=== PATIENT | female | born 1940 | race Caucasian/White ===

== ENCOUNTER → 2024-03-29 10:13 | Outpatient (REF) | payer BC, SELFPAY | LOC: HWRAD 10:13 | PROVIDERS: ATTENDING PHYSICIAN Internal Medicine | DX: R10.9 Unspecified abdominal pain (principal) | CPT/HCPCS: 76700 ==

== ENCOUNTER 2024-04-09 17:33 | Observation (INO) | payer BC, SELFPAY ==
[2024-04-09] VITALS (7 sets, daily range): BP systolic 90–160; BP diastolic 65–104
--- NOTE | 2024-04-09 15:23 | ED.CVA ---
History of Present Illness
General
Chief Complaint: CVA/TIA Symptoms
Source: patient
Time Seen by Provider: 04/09/24 14:04
Onset of Stroke Symptoms
Onset of symptoms known: No
Time pt last seen normal is known: Yes
Date last time pt seen normal: 04/08/24
Time last time pt seen normal: 21:00
History of Present Illness
History of Present Illness:
84-year-old female presents to the emergency room for evaluation of strokelike symptoms. Patient states that at 5:00 in the morning or so she got up to go the bathroom and noted that she could not move her right arm. Her right leg seems somewhat
weaker than normal. She also noted that her speech was garbled and slurred. Patient has a history of factor V Leiden deficiency. She does not take prescribed anticoagulants but rather takes some natural supplements which are meant to thin her
blood. She took an extra dose when she recognized the symptoms as well as a dose of aspirin. She went back to bed. When she awoke in her normal time she felt like her right arm was moving better. Her speech was less garbled but still slurred.
She went to the chiropractor appointment that she had where she was instructed to come to the emergency room. At that time her chiropractor noted a left facial droop. Currently the patient feels like she is back to her baseline. She denies any
headache.
Past History
Past History
ED Past Medical History: COPD, Other (Kidney stones, ovarian cysts) and Other (DVT, PE, gastritis, cervical and lumbar DJD. Osteoarthritis.); Negative Cancer or CHF
ED Past Surgical History: Gynecological (Hysterectomy) and Orthopedic
Social History
Tobacco: Former smoker
Alcohol: None
Drug: None
Personal:
Living: with family
Employment: Retired
Family History
Family History: Other (Mother with stroke and glaucoma, dad with esophageal cancer)
Phy Exam
Physical Exam
Physical Exam:
General: Awake, Alert, Oriented X3. No acute distress.
Vitals: unremarkable
Head: Atraumatic
Eyes: Pupils equal, EOMI
Throat: Airway intact, no exudates
Neck: Trachea midline
Lungs: Clear and equal b/l
Heart: Regular rate, no murmurs
Abd: Soft, Nontender, No pulsatile mass
Neuro: Cranial nerves intact, muscle strength equal bilaterally, cerebellar exam normal
Skin: Warm, dry, no rash
Extremities: pulses equal b/l, no edema
Course
Orders/Labs/Results
Orders:
Orders
04/09/24 13:28
CT Head W/o Iv Contrast Urgent
Comment:
Reason For Exam: trouble speaking, facial droop, numbness
04/09/24 15:22
Cardiac Monitoring- Treatment ONCE
04/09/24 15:23
Electrocardiogram (*1) Stat
Reason for Study: Other
Other Reason for Exam: neuro symptoms
EKG- Treatment ONCE
04/09/24 15:34
Clopidogrel Bisulfate [Plavix] 300 mg PO NOW STA
04/09/24 15:36
Complete Blood Count/With Diff Urgent
Comprehensive Metabolic Panel Urgent
PTT Urgent
Prothrombin Time Urgent
04/09/24 17:16
Oxycodone [Roxicodone] 10 mg PO TIDPRN PRN
04/09/24 17:17
Admit/Transfer Patient As Directed
Co-Sign Provider:
Level of Care: Observation services
Assign to:: Telemetry
Physician / Group: Hospitalist
Diagnosis: TIA
Reason for Telemetry: CVA/TIA
Date to Stop Telemetry: 04/12/24
Time to Stop Telemetry: 11:00
04/09/24 17:18
Code Status As Directed
Resuscitation Status: Full Code
PRN Pain Medication Management As Directed
May give lesser potent ordered pain med per pt: Yes
preference::
Protocol:: Medication orders for pain may be administered in a
manner that supports deferring to patient preference
when the pt is:
- Requesting an ordered lesser potent pain medication.
Least to most potent pain medications are defined
as: acetaminophen < NSAID < tramadol < opioids
(morphine, oxycodone, hydromorphone).
- Requesting a lesser dose of the same medication IF
ORDERED.
- Requesting a less intrusive route of administration
if both routes are prescribed by the provider (PO <
IV).
04/09/24 18:33
Acetaminophen [Tylenol/Feverall] 650 mg RECTAL Q4HPRN PRN
Acetaminophen [Tylenol] 650 mg PO Q4HPRN PRN
Enoxaparin Sodium [Lovenox] 40 mg SC QPM
04/09/24 18:33
Case Management Consult ONCE
Case Management Consult: Discharge Planning
Comment: stroke/tia
DIETARY CONSULT Routine
Reason for Consult: stroke/TIA
NEUROLOGY CONSULT Urgent
Consulting Provider: Guerda Solano
Was physician already notified: Yes
Reason for consult: TIA
MA [place] Routine
Comment:
Reason For Exam: stroke/TIA
Recent pill cam endoscopy?: No
MR Brain Without Contrast Routine
Comment:
Reason For Exam: stroke/TIA
Recent pill cam endoscopy?: No
Activity As Directed
Activity Level: With Assistance
NIH Stroke Scale As Directed
Directions: Per protocol
Comment: every shift and with any change in condition or mental status
Neurological Checks As Directed
Frequency: q4h
Additional Instructions:: q4h x 24h upon admission to the floor, then qshift & with any change in condition
and mental status
Patient Education As Directed
Type: Stroke education packet
Comment: provide to patient and family
Pneumatic Compression Sleeves As Directed
Type: Knee high
Swallow Screening CVA/TIA ONLY As Directed
Comment: NPO until swallowing screening completed
If patient FAILS swallow screening:: NPO, Speech Therapy consult, Aspiration Precautions
If patient PASSES swallow screening, diet:: Cholesterol Lowering
Vital Signs As Directed
Frequency: Per unit guidelines
Ot Eval And Treat Routine
Pt Eval And Treat Routine
Activity Level: With Assistance
Speech Therapy Eval & Treat Routine
DX Deep Vein Thrombosis Video Routine
04/09/24 22:00
Diphenhydramine [Benadryl] 25 mg PO HS
Gabapentin [Neurontin] 600 mg PO HS
Naproxen [Naprosyn] 250 mg PO HS
04/10/24 06:00
Cardiovascular Evaluation IN AM
Glycohemoglobin (HgbA1c) IN AM
Magnesium IN AM
04/10/24 08:00
Aspirin Chewable [Low Strength Aspirin] 81 mg PO DAILY
Cholecalciferol (Vitamin D3) [VITAMIN D3 (cholecalciferol)] 25 mcg PO DAILY
Cyanocobalamin [Vitamin B-12] 1,000 mcg PO DAILY
Naproxen [Naprosyn] 250 mg PO DAILY
Pantoprazole [Protonix] 20 mg PO DAILY
Prevagen 1 tablet PO DAILY
04/12/24 11:00
DC Protocol for Telemetry ONCE
Abnormal Lab Results
04/09/24
15:36
Absolute Monos (auto) 0.7 H 10^3/uL
(0.1-0.6)
Potassium 5.2 H mmol/L
(3.5-5.1)
BUN 19 H mg/dl
(7-17)
04/09/24 15:36
04/09/24 15:36
Vital Signs
Initial and Last Documented VS:
Initial Vital Signs
Pulse Resp BP Pulse Ox
81 18 143/67 94
04/09/24 13:23 04/09/24 13:23 04/09/24 13:23 04/09/24 13:23
Last Documented Vital Signs
Temp Pulse Resp BP Pulse Ox
97.8 F 91 20 160/84 94
04/09/24 19:30 04/09/24 19:30 04/09/24 19:30 04/09/24 19:30 04/09/24 19:30
MDM/Problems Addressed
Differential Diagnosis Includes:
CVA, TIA, subdural
MDM/Problems Addressed:
CT here does not show any acute infarct. Labs do not show any reason for the patient's symptoms. Her labs are pretty much unremarkable. Discussed with neurology who recommends hospitalization for stroke workup. 300 of Plavix ordered at their
recommendation. Patient is at particular risk for an ischemic event given she has factor V Leyden deficiency and takes only a herbal or natural anticoagulant rather than a NOAC
Chronic conditions affecting care: Other (Factor V Leyden deficiency)
*Radiology
Radiology exam reviewed: radiology read reviewed
*Pulse Oximetry
Patient hypoxic: no
*EKG
Interpreted by ED Provider?: Yes
Heart Rate: 75
Rate: normal
Rhythm: sinus
[place]: normal axis
Interval: normal interval
QRS Pattern: normal QRS
Ischemia: no ischemia
*Pump Tender Interpretation
Rate: normal
Interpretation: normal
Rhythm: sinus
*Critical Care Note
Total Time (30-74mins, 75-104mins- exclusive of procedures): 35 min
comment:
Critical care statement: A total of 35 minutes of critical care time was provided for this patient. This includes management of unstable vital signs, evaluation of the patient at bedside, reviewing the patient's pertinent medical records, discussion
with consultants, review of old EKGs and review of pertinent medical records. This time with separate from time utilized to perform the aforementioned documented procedures
Patient Management
Social determinants of health affecting care: Living situation
ED Attending Note
-
Portions of this chart may have been created with voice recognition software.� Occasional wrong word or��sound alike� substitutions may have occurred due to the inherent limitations of voice recognition software.
Discharge Plan
Departure
Patient Disposition: Admit
Date of Disposition: 04/09/24
Time of Disposition: 16:30
Admit to: Telemetry
Presentation/result/management discussed w/ accepting MD/DO: Hospitalist
Condition: Fair
Discharge Problem:
Acute CVA (cerebrovascular accident)
Interventions
Interventions:
*Risk Screen - Suicide Last Done: 04/09/24 14:46
*General Assessment Last Done: 04/09/24 13:23
*Neglect/Abuse Screening Last Done: 04/09/24 14:46
ED- Fall Risk Assessment Last Done: 04/09/24 18:23
*ED COVID-19 Vaccine History Last Done: 04/09/24 13:23
*Nursing Disposition Last Done: 04/09/24 18:23
ED- Pulmonary Assessment Last Done: 04/09/24 14:45
ED- Neurological Assessment Last Done: 04/09/24 14:45
ED- Cardiac Assessment Last Done: 04/09/24 14:45
ED Swallowing Screen Last Done: 04/09/24 18:07
Discharge Date and Time
Discharge Date/Time: 04/09/24 18:28
[2024-04-09 15:45] LABS: % Basophils 0.6 % (0-2); % Immature Granulocytes 0.5 % (0-0.5); % Lymphocytes 26.3 % (20.5-51.1); % Neutrophils 60.6 % (42.2-75.2); Absolute Basophils 0.1 10^3/uL (0-0.2); Absolute Eosinophils 0.2 10^3/uL (0-0.7); Absolute Lymphocytes 2.1 10^3/uL (1.2-3.4); Absolute Monocytes 0.7 10^3/uL (0.1-0.6); Absolute Neutrophils 4.9 10^3/uL (1.4-6.5); Hemoglobin 13.6 g/dL (12.0-16.0); Mean Corp Hgb Conc. 33.2 g/dL (33.0-37.0); Mean Corpuscular Hgb 29.5 pg (27.0-31.0); Mean Corpuscular Volume 88.9 fL (81.0-99.0); Mean Platelet Volume 8.8 fL (7.4-10.4); Nucleated Red Blood Cells % 0 %; Platelet Count 219 10^3/uL (130-400); Red Blood Cell Count 4.61 10^6/uL (4.20-5.40); Red Cell Dist. Width 13.1 % (11.5-14.5)
[2024-04-09 15:54] LABS: ALT (SGPT) 19 U/L (0-35); AST (SGOT) 29 U/L (14-36); Alkaline Phosphatase 87 U/L (38-126); Blood Urea Nitrogen 19 mg/dl (7-17); Carbon Dioxide 30 mmol/L (22-30); Chloride 101 mmol/L (98-107); Glucose 90 mg/dl (70-99); Potassium 5.2 mmol/L (3.5-5.1); Sodium 138 mmol/L (135-145); Total Bilirubin 0.4 mg/dl (0.2-1.3); Total Protein 6.6 g/dl (6.3-8.2); eGFR > 60.00
[2024-04-09 16:14] LABS: APTT 27.9 Sec (23.4-35.0); INR 1.05; PT 13.5 Sec (11.4-14.6)
--- NOTE | 2024-04-09 17:04 | HPS.HSE ---
Family Physician
-
Family Physician: Osmin Conte
Chief Complaint
-
Patient with transient episode of right-sided weakness and slurred speech
History of Present Illness
This is an 84-year-old female with a past medical history that is significant for factor V Leiden, COPD, osteoarthritis status post left total knee arthroplasty as well cervical and lumbar spinal surgeries presenting to the emergency department with
episode of right-sided weakness and slurred speech.
Patient reports that she campos at around 5 AM today. In attempting to go to the bathroom she realized that she could not move her right. She also reported right leg weakness. She noticed that her speech was garbled and this was also noticed by
spouse. She stated that she had stopped taking anticoagulation and was using natural remedies for her coagulopathy. She stated that she diluted the remedies that she was using that they thought that that might have been the problem. She
immediately took a dose of aspirin. She went back to sleep. When she woke up she noticed that her right hand was moving normally and there was no longer any weakness in her right leg. Her speech was less garbled but still slurred. She went to
the chiropractor appointment that she had where she was instructed to come to the emergency room. At that time her chiropractor noted a left facial droop. Currently the patient feels like she is back to her baseline. She denies any headache.
Patient denies any such episodes in the past. She denies any history of hypertension, hyperlipidemia, diabetes but reports family history of CVA in mother.
In the ED the patient current blood pressure was 98/70, pulse of 80 oxygen saturation was 100% on room air. ECG showed normal sinus rhythm at a rate of 75. CT of head was completely unremarkable. She did not get a CT angio per neurology. CBC
completely within normal limits. Chemistry is also completely within normal limits.
Medical History
Past Medical History
Past Medical History: Reports COPD and GERD
Additional Past Medical History:
Factor V leiden
Osteoarthritis
Past Surgical History: Reports Orthopedic (L TKA, Cervical and Spinal fusion surgeries)
Social History
Tobacco: Former Smoker
Alcohol: None
Drug: None
Personal:
Living: With Family
Employment: Retired
Family History
Family History: Other (CVA)
Allergies / Home Medications
Allergies reflects when Allergies were last updated in [facility].
Home Medications with original date entered in [facility]
Allergy/Medication List:
Allergies
Allergy/AdvReac Type Severity Reaction Status Date / Time
dipyridamole Allergy everything Verified 04/09/24 13:28
[From Persantine] turned
black
Penicillins Allergy passed out Verified 04/09/24 13:28
Home Medications
Prevagen 1 tab PO DAILY 04/09/24
cholecalciferol (vitamin D3) 25 mcg (1,000 unit) tablet 25 mcg PO DAILY 04/09/24
cyanocobalamin (vitamin B-12) 1,000 mcg tablet 1,000 mcg PO DAILY 04/09/24
digestive enzymes 1 tab PO MEALS 04/09/24
gabapentin 300 mg capsule 600 mg PO HS 04/09/24
naproxen 220 mg-diphenhydramine 25 mg tablet (Aleve PM) 2 tab PO HS 04/09/24
naproxen sodium 220 mg tablet (Aleve) 220 - 440 mg PO DAILY 04/09/24
omeprazole 20 mg tablet,delayed release 20 mg PO DAILY 04/09/24
oxycodone 10 mg tablet 10 mg PO TIDPRN PRN moderate pain 04/09/24
Review of Systems
-
History Source: Patient
Constitutional: Reports No Symptoms
EENT: Reports No Symptoms
Respiratory: Reports No Symptoms
Cardiac: Reports No Symptoms
Abdomen/GI: Reports No Symptoms
: Reports No Symptoms
Musculoskeletal: Reports No Symptoms
Skin: Reports No Symptoms
Neurological: Reports Weakness
Endocrine: Reports No Symptoms
Hematologic/Lymphatic: Reports No Symptoms
Psych: Reports No Symptoms
Physical Exam
Vital Signs
Vital Signs
Pulse Resp BP Pulse Ox
74 19 90/65 94
04/09/24 16:45 04/09/24 16:45 04/09/24 16:00 04/09/24 16:45
Physical Exam
General: Well Developed, Well Nourished, No Apparent Distress and Conversant
HEENT: NormoCephalic, Anicteric, Moist mucous membranes, Atraumatic and PERRLA
Respiratory: Clear
Cardiac: S1/S2 and Regular Rhythm
Breast: Deferred by me
GI: Soft, Non Tender, Non Distended and Normal Bowel Sounds
Rectal: Deferred by Provider
Genito-urinary: Deferred by me
Musculoskeletal: No Clubbing, No Cyanosis, No Edema and Normal Gait & Station
Skin: Warm and Dry
Neuro: AO x 3, No Motor Deficits, Nonfocal/grossly intact, Cranial Nerves Intact, No Sensory Deficits and DTR's Intact & Symmetrical
Hematologic/Lymphatic: Lymphadenopathy
Psych: Calm and Intact Judgment/Insight
Laboratory Results
-
04/09/24 15:36
04/09/24 15:36
Laboratory Results
PT 13.5 Sec (11.4-14.6) 04/09/24 15:36
INR 1.05 04/09/24 15:36
APTT 27.9 Sec (23.4-35.0) 04/09/24 15:36
Total Bilirubin 0.4 mg/dl (0.2-1.3) 04/09/24 15:36
AST 29 U/L (14-36) 04/09/24 15:36
ALT 19 U/L (0-35) 04/09/24 15:36
Alkaline Phosphatase 87 U/L (38-126) 04/09/24 15:36
Data Reviewed
-
CT Scan: Report Reviewed by me
Medical Tests (Nuc Med, Echo, EKG etc): Image Personally Visualized and interpreted
Lab Data: Labs Reviewed by me
Old Records: Reviewed
Impression/Plan
-
IMPRESSION:
Patient with h/o Factor V leiden, prior DVT and OA currently not anticoagulated who presents with transient right sided weakness and slurred speech at around 5 am. L. Facial droop noted in am and sent to ED. She is currently back to baseline
without facial droop, weakness or slurred speech, NIHSS = 0. Being admitted for TIA.
PLAN:
TIA/CVA - Symptoms resolved at this time. CT head is negative. ABCD2 score = 4 putting her at moderate risk. H/O Factor V leiden likely increases her risk. ED d/w neurology and recommendations noted.
- admit to telemetry
- plavix 300 once now
- asa 81 daily for now
- MRI/MRA
- PT OT eval.
Coagulopathy - h/o factor V and DVT. Patient taking non-prescription supplements which I'm not familiar with. She is adamant that if she is to be on anticoagulation she would rather be on Eliquis. If no evidence of thrombotic CVA, would leave
decision to PMD.
COPD - No acute symptoms
- continue rescue inhalers prn
DVT PPX
- lovenox sq
Full Code
[2024-04-09] MEDS: LOVENOX SC (19:59)
[2024-04-09] MEDS: LOVENOX 40 MG SC (20:10)
[2024-04-09] MEDS: NEURONTIN 600 MG PO (21:17)
[2024-04-09] MEDS: BENADRYL 25 MG PO (21:17)
[2024-04-09] MEDS: NAPROSYN 250 MG PO (21:17)
[2024-04-10 03:11] VITALS: BP 133/66
[2024-04-10 07:39] VITALS: BP 142/78
[2024-04-10] MEDS: PROTONIX 20 MG PO (08:46)
[2024-04-10] MEDS: LOW STRENGTH ASPIRIN 81 MG PO (08:47)
[2024-04-10] MEDS: VITAMIN B-12 1000 MCG PO (08:47)
[2024-04-10] MEDS: VITAMIN D3 (cholecalciferol) 25 MCG PO (08:47)
[2024-04-10] MEDS: NAPROSYN 250 MG PO (08:47)
[2024-04-10 09:32] LABS: HDL Cholesterol 39 mg/dl; LDL Cholesterol, Calculated 67 mg/dl; Total Cholesterol 139 mg/dl (50-199); Triglyceride 165 mg/dl (10-149); Very Low Density Lipoprotein 33 mg/dl (0-30)
--- NOTE | 2024-04-10 10:40 | W.PN.HOSP.TC ---
Today's Communication/Plan
-
await MRI/MRA/neuro findings
Assessment / Plan
Assessment / Plan
pt is an 84 year old female
TIA/CVA - Symptoms resolved at this time. CT head is negative. H/O Factor V leiden likely increases her risk- plavix 300 once now- asa 81 daily for now- MRI/MRA- PT OT eval--neuro pending
Coagulopathy - h/o factor V and DVT. Patient taking non-prescription supplements which I'm not familiar with. She is adamant that if she is to be on anticoagulation she would rather be on Eliquis. Will send script to pharmacy if no bleeding
COPD - No acute symptoms - continue rescue inhalers prn
DVT PPX - lovenox sq
Full Code
Anticipated Discharge: Today
Subjective/Interval History
-
Date of Service: April 10, 2024
pt without c/o--wants to leave by 5
Objective Data
-
Vital Signs:
max temp for 24 hours
04/10/24
07:39
Temp 98.3 F
Vital Signs
Temp Pulse Resp BP Pulse Ox
98.3 F 77 20 142/78 97
04/10/24 07:39 04/10/24 07:39 04/10/24 07:39 04/10/24 07:39 04/10/24 07:39
I&O
04/09/24 04/10/24 04/11/24
06:59 06:59 06:59
Intake Total 120 / 120
Balance 120 / 120
Review of Systems
-
All other systems: Reviewed and negative
Physical Exam
-
General: Well Developed, Well Nourished and No Apparent Distress
HEENT: Normocephalic and Atraumatic
Respiratory: Clear to Auscultation; Negative Wheezes or Rhonchi
Cardiac: Regular Rhythm and S1/S2; Negative Murmur
GI: Soft, Nontender, Nondistended and Normal Bowel Sounds
Musculoskeletal: No Clubbing, No Cyanosis and No Edema
Neuro: Awake and Alert
Psych: Calm
--- NOTE | 2024-04-10 10:50 | PTOTSP ---
Speech Therapy
Presentation: Patient was admitted with concerns for slurred speech which patient reports has resolved since admission. During informal conversations, patient's speech and language appeared to be WNL. During confrontational naming task, patient
identified 10/10 items within the room without any overt difficulty. Patient was fully oriented and able to recall address, phone number, and children.
Swallowing Function: Patient was observed with several bites of cracker and puree in addition to several sips of thin liquids (straw and cup) in which patient appeared to tolerate as she did not exhibit any overt clinical s/sx of aspiration or
difficulty with mastication/ manipulation. Patient denied any dysphagia complaints.
Recommendations:
1) Regular consistency solids and thin liquids
2) Standard aspiration precautions
3) Medications as tolerated
Plan: No further CLOTH SANDER intervention is indicated at this time as patient appears to be demonstrating her baseline functioning. Please re-consult if clinically indicated.
[2024-04-10 10:53] LABS: Glycohemoglobin (HgbA1c) 5.3 % (4.0-5.6)
--- NOTE | 2024-04-10 11:01 | CON.NEURO4 ---
Consultation - Neurology 4
-
CONSULTING PHYSICIAN: Xiomara
REFERRING PHYSICIAN: ER
DICTATED BY: Xiomara
DATE/TIME OF REQUEST: 04/09/24 in late afternoon
DATE/TIME OF CONSULTATION: 04/10/24 at 1145am
Reason for Consultation: stroke
History of Present Illness:
84 year-old female with a history of Favor V Leiden who woke up yesterday at 5:30am with R sided weakness, arm>leg, dysarthria/garbled speech and unsteady gait. She does not take any anticoagulation; she took Eliquis years ago but then switched to
a 'natural blood thinner'--natokinase; she took both natokinase and ASA 81mg and went back to bed. When she woke up later in the AM she noted that her R arm was stroke but her speech was not normal. She went to her chiropractor who noted L facial
weakness and sent her to the ER. HCT showed no acute findings and her NIHSS was [address] Cotto was contacted who recommended loading with Plavix 300mg once and MRI brain as well as permissive hypertension. She states that she has felt
back to baseline since arriving the ER.
Past Medical History: COPD, Kidney stones, ovarian cysts, DVT, PE, gastritis, cervical and lumbar DJD, Osteoarthritis, Factor V Leiden
Past Surgical History: Hysterectomy, Orthopedic
Family History: Mother with large stroke and glaucoma, dad with esophageal cancer
Social History
Tobacco: Former Smoker
Alcohol: None
Drug: None
Personal:
Living: With Family
Employment: Retired
Allergies
dipyridamole [From Persantine] Allergy (Verified 04/09/24 13:28)
everything turned black
Penicillins Allergy (Verified 04/09/24 13:28)
passed out
Home Medications
�Medication �Instructions �Recorded
Prevagen 1 tab PO DAILY 04/09/24
cholecalciferol (vitamin D3) 25 25 mcg PO DAILY 04/09/24
mcg (1,000 unit) tablet
cyanocobalamin (vitamin B-12) 1,000 mcg PO DAILY 04/09/24
1,000 mcg tablet
digestive enzymes 1 tab PO MEALS 04/09/24
gabapentin 300 mg capsule 600 mg PO HS 04/09/24
naproxen 220 mg-diphenhydramine 25 2 tab PO HS 04/09/24
mg tablet (Aleve PM)
naproxen sodium 220 mg tablet 220 - 440 mg PO DAILY 04/09/24
(Aleve)
omeprazole 20 mg tablet,delayed 20 mg PO DAILY 04/09/24
release
oxycodone 10 mg tablet 10 mg PO TIDPRN PRN moderate pain 04/09/24
Takes natokinase 570mg daily.
Review of Symptoms:
Patient denies any fever, headache, chest pain, shortness of breath, GI or symptoms.
�Per the HPI.�All systems are reviewed negative except above.
Vital Signs
Temp Pulse Resp BP Pulse Ox
98.3 F 77 20 142/78 97
04/10/24 07:39 04/10/24 07:39 04/10/24 07:39 04/10/24 07:39 04/10/24 07:39
Lab Results
04/09/24 15:36
04/09/24 15:36
PT 13.5 Sec (11.4-14.6) 04/09/24 15:36
INR 1.05 04/09/24 15:36
APTT 27.9 Sec (23.4-35.0) 04/09/24 15:36
Sodium 138 mmol/L (135-145) 04/09/24 15:36
Potassium 5.2 mmol/L (3.5-5.1) H 04/09/24 15:36
BUN 19 mg/dl (7-17) H 04/09/24 15:36
Glucose 90 mg/dl (70-99) 04/09/24 15:36
Calcium 10.0 mg/dl (8.4-10.2) 04/09/24 15:36
LDL Cholesterol, Calc 67 mg/dl 04/10/24 08:12
Physical Exam:
The patient is afebrile, heart sounds S1 and S2 are regular and chest is clear to auscultation bilaterally.
NIH Stroke Scale (if applicable):
I performed the NIH stroke scale on the patient on 04/10/24 at 1200. The patient scored 0 points on the NIH stroke scale assessment.
Neurologic Examination:
The patient is awake, alert and oriented x 3. She is able to follow commands and answer questions appropriately. There is no aphasia or dysarthria. On cranial nerve assessment, pupils are 3 mm bilateral, round and reactive to light and
accommodation. Visual portillo are full. Extraocular movements are intact. Facial sensations are intact and bilaterally symmetrical, there is no facial asymmetry. Hearing is intact bilaterally to normal conversation volume. Tongue palate and uvula
are midline. Sternocleidomastoid strengths are full bilaterally. Motor strengths are 5/5 bilateral upper and lower extremities on medical research [place] scale. There is no drift or involuntary movement noted. Deep tendon reflexes are 2+ bilateral
upper and lower extremities and Babinski is absent bilaterally. Sensations of touch, temperature are intact and bilaterally symmetrical. There was no extinction noted on double simultaneous stimulation. Coordination is intact by finger to nose
bilaterally.
Neuro Imaging:
04/09/24:
HCT:
No acute intracranial abnormality.
Impression:
AIMEE PATTEN is a 84 year old F who has presented to the hospital with transient R sided weakness, dysarthria/aphasia and gait ataxia, now resolved. Her presentation is concerning for TIA. She has a history of Factor V Leiden deficiency and does
not take any anticoagulation.
Patient has the following risk factors for their symptoms:
IV Tenecteplase/IAT candidacy
Recommendations:
-check MRI brain without contrast to evaluate for stroke
-MRA head already done
-CUS
-BP goal is now normotension.
-continue ASA 81mg daily. Plavix added on. If no hemorrhage/stroke on MRI brain, can start anticoagulation and d/c antiplatelet.
- Check hemoglobin A1C. Goal is normoglycemia.
- Started Lipitor 40mg qhs. Agrees with taking this; reviewed potential s/e. LDL is at goal at 67-- Goal LDL after stroke/TIA is <70.
- Check an echocardiogram.
-PT/OT/ST evaluations
- DVT prophylaxis
-continue neurochecks
-reviewed s/s of stroke, importance of calling 911 immedately should theese recur
F/u in neurology office with EMRE Ospina in 2-3 mos.
Discussed patient care with: patient, Dr. Cotto
--- NOTE | 2024-04-10 11:02 | PTCARENOTE ---
Assumed care of pt from previous nurse. Pt denies pain. pt is on tele running nsr. Pt [facility] is a 0. Awaiting on MRI results. pt call kiser is within reach, pt rings thi. will cont to monitor.
[2024-04-10 11:25] VITALS: BP 88/63
--- NOTE | 2024-04-10 11:44 | CM ---
accounts payable manager reviewed patient's chart and met with patient and provided LUCIA letter, patient refused to sign Lucia Letter. Patient lives with spouse and son in a 2 story home with 2 steps to enter, patient is independent with adl's and uses a cane
with ambulation.
PCP: Dr. Osmin Smallwood
Pharmacy [facility]
Plan; Home when stable, no needs.
--- NOTE | 2024-04-10 12:54 | W.DCSUMMARY ---
Discharge Summary
Discharge Data
Date of Admission: 04/09/24
Date of Discharge: 04/10/24
-
Pending Results: No
Hospital Course
Primary care physician : Osmin Conte
Principal Discharge diagnosis : Transient ischemic attack
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
Hospital Course : Patient was an 84-year-old female with a history for factor V Leiden deficiency deep venous thrombosis and chronic obstructive pulmonary disease. She presented with right-sided weakness and slurred speech. On the day of admission
she woke around 5 AM but upon attempting to go to the bathroom she realized she could not move her right side. She reported right leg weakness and noted that her speech was garbled. This was also noticed by her spouse. She stopped taking her
anticoagulation and was using natural remedies for her coagulopathy. She then deluded the remedies she was using as they thought that might have been the problem. She then immediately took a dose of aspirin and went back to sleep. When she woke
again she noticed that her right hand was moving normally and there is no longer any weakness. Speech was less garbled but still slurred. She then went to her appointment at the chiropractor who then instructed her to come to the emergency
department. Chiropractor felt she had a left facial droop. Patient was brought in as observation.
Problem #1: Transient ischemic attack. Patient was seen in consultation by neurology, PT, OT, speech. Head CT done in the emergency department was negative. Patient was given a one-time dose of Plavix 300 mg and started on aspirin 81 mg daily.
Patient is agreeable to take Eliquis moving forward rather than her natural remedies. Brain MRI was done which showed no focal or acute intracranial abnormalities. Head MRA was normal. Neurology has recommended Eliquis and Lipitor. LDL (67) is
at goal (which is less than 70). It is recommended that the patient have an echocardiogram and carotid ultrasound set up as an outpatient to complete her stroke workup. She should follow-up with neurology CURTAIN FRAMER in 4 to 6 weeks.
Problem #2: All other medical issues. These include History of factor V Leiden deficiency with deep venous thrombosis, chronic obstructive pulmonary disease. These medical issues were stable during her hospitalization. Medications were continued
as able. Please see the discussion above regarding anticoagulation for her factor V Leiden deficiency.
Patient is stable for discharge home at this time. If there are any questions regarding this dictation or her hospital stay, please not hesitate to call. Our office number is [phone].
Important imaging findings :
BRAIN MRI IMPRESSION:
There are no focal or acute intracranial abnormalities.
There is mild cortical and cerebellar atrophy with mild nonspecific white matter changes as described above.
MRA IMPRESSION: Normal
HEAD CT SCAN IMPRESSION:
No acute intracranial abnormality.
Discharge Plan
-
Patient Disposition: Home (Routine Discharge)
Discharge Diagnosis/Procedures: Transient ischemic attack, factor V Leiden deficiency with deep venous thrombosis history on natural anticoagulants, chronic obstructive pulmonary disease
Condition: Good
Diet: As tolerated
Activity: As tolerated
Driving Restrictions: As prior to admission
Bathing Restrictions: None
Activity Restrictions/Additional Instructions:
will need to set up an outpatient echo and carotid ultrasound through your primary care doctor
Referrals:
Jada Chandra CRNP [Specified Professional Personl] - in four to six weeks
Osmin Conte MD [Family Provider] - in less than 1 week
Prescriptions:
New
diphenhydramine HCl 25 mg Capsule
25 mg PO HS Qty: 0 0RF
Eliquis 5 mg tablet
5 mg PO BID Qty: 30 0RF
atorvastatin 40 mg Tablet
40 mg PO QPM Qty: 30 0RF
Continued
digestive enzymes Tablet
1 tab PO MEALS
cyanocobalamin (vitamin B-12) 1,000 mcg Tablet
1,000 mcg PO DAILY
gabapentin 300 mg capsule
600 mg PO HS
cholecalciferol (vitamin D3) 25 mcg (1,000 unit) Tablet
25 mcg PO DAILY
omeprazole 20 mg Tablet,Delayed Release (Dr/Ec)
20 mg PO DAILY
oxycodone 10 mg tablet
10 mg PO TIDPRN PRN (Reason: moderate pain)
Patient Comments:
04/09/2024: last filled 04/05/24, 90 tabs for 30 days from [facility]#[id number]
Prevagen
1 tab PO DAILY
Discontinued
naproxen sodium [Aleve] 220 mg Tablet
220 - 440 mg PO DAILY
Aleve PM 220-25 mg Tablet
2 tab PO HS
Discharge Orders:
Discharge Patient (As Directed); Ordered 04/10/24
Ordered By: Samantha Majano
Discharge Date and Time
Print Language: PERSIAN
[2024-04-10] MEDS: PLAVIX 75 MG PO (14:09)
== END 2024-04-10 15:05 | disposition home or self-care (01) ==
LOC: 4 WEST ACU 17:33
PROVIDERS: ADMITTING PHYSICIAN Internal Medicine; ATTENDING PHYSICIAN Internal Medicine; CONSULT PHYSICIAN Psychiatry & Neurology Neurology; EMERGENCY PHYSICIAN Emergency Medicine; FAMILY PHYSICIAN Internal Medicine
DX: G45.9 Transient cerebral ischemic attack, unspecified (principal); R47.81 Slurred speech; D68.51 Activated protein C resistance; J44.9 Chronic obstructive pulmonary disease, unspecified; G31.89 Other specified degenerative diseases of nervous system; R29.810 Facial weakness; K21.9 Gastro-esophageal reflux disease without esophagitis; M19.90 Unspecified osteoarthritis, unspecified site; R53.1 Weakness; Z87.891 Personal history of nicotine dependence; Z86.718 Personal history of other venous thrombosis and embolism; Z87.442 Personal history of urinary calculi; Z87.19 Personal history of other diseases of the digestive system; Z86.711 Personal history of pulmonary embolism; Z82.3 Family history of stroke; Z80.0 Family history of malignant neoplasm of digestive organs; Z88.0 Allergy status to penicillin; Z88.8 Allergy status to other drugs, medicaments and biological substances
CPT/HCPCS: 70450; 70544; 70551; 80053; 80061; 83036; 83735; 85025; 85610; 85730; 92523; 93005; 97161; 97165; 99291; G0378

== ENCOUNTER → 2024-05-18 07:59 | Outpatient (REF) | payer BC, SELFPAY | LOC: RSP 07:59 | PROVIDERS: ATTENDING PHYSICIAN Internal Medicine Pulmonary Disease; FAMILY PHYSICIAN Internal Medicine | DX: J44.9 Chronic obstructive pulmonary disease, unspecified (principal) | CPT/HCPCS: 94727; 94729; 94060 ==

== ENCOUNTER 2024-11-27 15:03 | Emergency (ER) | payer BC, MEDICARE, SELFPAY ==
[2024-11-27 15:08] VITALS: BP 128/73
[2024-11-27 15:39] LABS: % Basophils 0.9 % (0-2); % Eosinophils 3.3 % (0-6); % Immature Granulocytes 0.4 % (0-0.5); % Lymphocytes 25.5 % (20.5-51.1); % Neutrophils 61.9 % (42.2-75.2); Absolute Basophils 0.1 10^3/uL (0-0.2); Absolute Eosinophils 0.3 10^3/uL (0-0.7); Absolute Monocytes 0.6 10^3/uL (0.1-0.6); Absolute Neutrophils 4.9 10^3/uL (1.4-6.5); Hematocrit 43.4 % (37.0-47.0); Hemoglobin 13.8 g/dL (12.0-16.0); Mean Corp Hgb Conc. 31.8 g/dL (33.0-37.0); Mean Corpuscular Hgb 29.4 pg (27.0-31.0); Mean Corpuscular Volume 92.5 fL (81.0-99.0); Mean Platelet Volume 8.7 fL (7.4-10.4); Nucleated Red Blood Cells % 0 %; Platelet Count 237 10^3/uL (130-400); Red Blood Cell Count 4.69 10^6/uL (4.20-5.40); Red Cell Dist. Width 13.3 % (11.5-14.5)
[2024-11-27 15:51] LABS: ALT (SGPT) 14 U/L (0-35); AST (SGOT) 21 U/L (14-36); Albumin 4.1 g/dl (3.5-5.0); Alkaline Phosphatase 78 U/L (38-126); Blood Urea Nitrogen 18 mg/dl (7-17); Calcium 9.9 mg/dl (8.4-10.2); Carbon Dioxide 31 mmol/L (22-30); Chloride 96 mmol/L (98-107); Glucose 99 mg/dl (70-99); Potassium 5.3 mmol/L (3.5-5.1); Sodium 134 mmol/L (135-145); Total Bilirubin 0.7 mg/dl (0.2-1.3); Total Protein 6.8 g/dl (6.3-8.2); eGFR > 60.00
[2024-11-27 16:03] LABS: Troponin I < 0.012 ng/ml
[2024-11-27 16:15] VITALS: BMI 34.6
[2024-11-27 16:25] VITALS: BP 118/54
[2024-11-27 16:55] LABS: COVID-19 Antigen Negative (Negative)
[2024-11-27 17:00] VITALS: BP 119/95
[2024-11-27 17:35] LABS: Urine Albumin Negative (Neg - Trace); Urine Bilirubin Negative (Negative); Urine Character Clear (Clear); Urine Color Yellow; Urine Glucose Negative (Negative); Urine Ketone Negative (Negative); Urine Leukocyte Negative (Negative); Urine Nitrite Negative (Negative); Urine Occult Blood 2+ (Negative); Urine Urobilinogen Negative (Neg - 1+)
[2024-11-27 18:00] VITALS: BP 105/70
[2024-11-27 18:07] LABS: Urine Bacteria Few (Negative); Urine Red Blood Cell 0-2 /HPF (0-2); Urine Squamous Cell 0-2 /LPF (Few); Urine White Cell 0-2 /HPF (0-5)
[2024-11-27 18:36] LABS: TSH Reflex To Free T4 3.12 uIU/ml (0.47-4.68)
[2024-11-27 19:23] VITALS: BP 120/74
--- NOTE | 2024-11-27 19:33 | ED.GENMED ---
History of Present Illness
General
Chief Complaint: Dizziness
Source: patient
Exam Limitations: none
Time Seen by Provider: 11/27/24 16:24
History of Present Illness
History of Present Illness:
84-year-old female with history of factor V Leiden on Eliquis presents with fatigue and dizziness. This started this morning. She felt well yesterday. She described just in general weakness. No unilateral numbness. No fevers. She has not been
coughing. No abdominal pain chest pain or shortness of breath. No other complaints at this time
Past History
Past History
ED Past Medical History: COPD, Other (Kidney stones, ovarian cysts) and Other (DVT, PE, gastritis, cervical and lumbar DJD. Osteoarthritis.); Negative Cancer or CHF
ED Past Surgical History: Gynecological (Hysterectomy) and Orthopedic
Social History
Tobacco: Former smoker
Alcohol: None
Drug: None
Personal:
Living: with family
Employment: Retired
Family History
Family History: Other (Mother with stroke and glaucoma, dad with esophageal cancer)
Phy Exam
Physical Exam
Physical Exam:
General: Well-appearing female no acute respiratory distress
HEENT: Normocephalic atraumatic mucosa moist neck is supple
Heart: Regular rate and rhythm
Lungs: Clear no wheeze
Abdomen is soft nontender nondistended no guarding rebound normal bowel sounds
Extremities: No cyanosis or edema
Neurologic exam: Alert and oriented no facial asymmetry no drift finger-nose [id number] intact. No dysarthria or aphasia. Visual portillo intact Lupillo-Hallpike negative no nystagmus
Extremities: No cyanosis
Course
Orders/Labs/Results
Orders:
Orders
11/27/24 15:12
ECG [Electrocardiogram (*1)] Urgent
Reason for Study: Vertigo / Dizzy
EKG- Treatment ONCE
11/27/24 15:24
Complete Blood Count/With Diff Urgent
Comprehensive Metabolic Panel Urgent
TSH Reflex To Free T4 Urgent
Comment: ADDON
Troponin I Urgent
11/27/24 16:27
COVID-19 Antigen Urgent
Source: Nasal Swab
Influenza A+B Rapid Molecular Urgent
[place] Source: Nasal Swab
Specimen Description:
11/27/24 17:15
Add On- LAB Urgent
Tests Added?: tsh reflex to t4
CT Head W/o Iv Contrast Urgent
Comment:
Reason For Exam: dizziness
11/27/24 17:23
Urinalysis Reflex To Culture Urgent
Date Specimen was Collected: 11/27/24
Time Specimen was Collected: 17:21
Urine Microscopic Reflex Cult Urgent
Abnormal Lab Results
11/27/24 11/27/24
15:24 17:23
MCHC 31.8 L g/dL
(33.0-37.0)
Sodium 134 L mmol/L
(135-145)
Potassium 5.3 H mmol/L
(3.5-5.1)
Chloride 96 L mmol/L
(98-107)
Carbon Dioxide 31 H mmol/L
(22-30)
BUN 18 H mg/dl
(7-17)
Ur Occult Blood Reflex 2+ A
(Negative)
Urine Bacteria (Reflex) Few A
(Negative)
11/27/24 15:24
11/27/24 15:24
Vital Signs
Initial and Last Documented VS:
Initial Vital Signs
Temp Pulse Resp BP Pulse Ox
99.1 F 82 16 128/73 96
11/27/24 15:08 11/27/24 15:08 11/27/24 15:08 11/27/24 15:08 11/27/24 15:08
Last Documented Vital Signs
Temp Pulse Resp BP Pulse Ox
99.1 F 79 20 120/74 95
11/27/24 15:08 11/27/24 19:23 11/27/24 19:23 11/27/24 19:23 11/27/24 19:23
MDM/Problems Addressed
Differential Diagnosis Includes:
Patient with weakness and dizziness. No localizing symptoms on exam differential is large CT head negative. Potassium only slightly elevated at 5.3. EKG and troponin normal and undetectable. COVID and flu negative. Patient has ambulated here
states he is feeling better. Do not suspect acute stroke. Patient is anticoagulated on a statin.
Had shared decision making between admission for further treatment and testing versus going home with close follow-up. Patient expressed her desire to go home. I think this is reasonable given lack of findings on today's workup. Return
precautions were given
*Critical Care Note
Total Time (30-74mins, 75-104mins- exclusive of procedures): Not Applicable
ED Attending Note
-
Portions of this chart may have been created with voice recognition software.� Occasional wrong word or��sound alike� substitutions may have occurred due to the inherent limitations of voice recognition software.
Discharge Plan
Departure
Patient Disposition: Home (Routine Discharge)
Date of Disposition: 11/27/24
Time of Disposition: 19:35
Patient with high blood pressure during this ER visit?: No
Discharge Problem:
Weakness
Instructions: Weakness
Prescriptions:
No Action
digestive enzymes Tablet
1 tab PO MEALS
cyanocobalamin (vitamin B-12) 1,000 mcg Tablet
1,000 mcg PO DAILY
gabapentin 300 mg capsule
600 mg PO HS
cholecalciferol (vitamin D3) 25 mcg (1,000 unit) Tablet
25 mcg PO DAILY
omeprazole 20 mg Tablet,Delayed Release (Dr/Ec)
20 mg PO DAILY
oxycodone 10 mg tablet
10 mg PO TIDPRN PRN (Reason: moderate pain)
Patient Comments:
04/09/2024: last filled 04/05/24, 90 tabs for 30 days from [facility]
Prevagen
1 tab PO DAILY
diphenhydramine HCl 25 mg Capsule
25 mg PO HS Qty: 0 0RF
Eliquis 5 mg tablet
5 mg PO BID Qty: 30 0RF
atorvastatin 40 mg Tablet
40 mg PO QPM Qty: 30 0RF
Referrals:
UNKNOWN - PT DOES,NOT KNOW [Family Provider] -
Activity Restrictions/Additional Instructions:
Continue current medications. Return here for worsening symptoms otherwise follow-up with your doctor
Interventions
Interventions:
*General Assessment Last Done: 11/27/24 16:15
*ED- Fall Risk Assessment Last Done: 11/27/24 16:15
*ED COVID-19 Vaccine History Last Done: 11/27/24 16:15
ED- Neurological Assessment Last Done: 11/27/24 16:17
ED Swallowing Screen Last Done: 11/27/24 16:17
Discharge Date and Time
Print Language: JAMA[place]
== END 2024-11-27 19:53 | disposition home or self-care (01) ==
LOC: EMR 15:03
PROVIDERS: Emergency Medicine; Physician Assistant; EMERGENCY PHYSICIAN Emergency Medicine
DX: R53.1 Weakness (principal); D68.51 Activated protein C resistance; J44.9 Chronic obstructive pulmonary disease, unspecified; Z86.718 Personal history of other venous thrombosis and embolism; Z79.01 Long term (current) use of anticoagulants; Z87.891 Personal history of nicotine dependence; Z11.52 Encounter for screening for COVID-19
CPT/HCPCS: 99284; 70450; 80053; 81003; 81015; 84443; 84484; 85025; 87502; 87811; 93005